=== PATIENT | female | born 1970 | race Caucasian/White ===

== ENCOUNTER 2017-04-23 14:52 | Emergency (ER) | payer MEDICARE, MEDICAID ==
[~2017-04-23] VITALS: Ht 167.6 cm; Wt 71.8 kg
[~2017-04-23 14:52] MED LIST: CYAN50002 SL; FLUT16SP NS; GABA-500 PO; KLO1T PO; LORA2TAB PO; Marijuana; ONDA4TAB12 PO; PANT40TA3 PO; PROM12.510 PO; RIZA10TA28 PO; TOPI50TA32 PO; TOPI50TA88 PO; VENL75TA3 PO
[2017-04-23 14:55] VITALS: BP 121/80; PULSE 88; RESP 20; O2SAT 99
--- NOTE | 2017-04-23 15:54 | ED.REPORT ---
HPI-General Illness Date of Service Apr 23, 2017 ED Provider: Damien Shah MD Pt is a 46 year old female with a history of anxiety, PTSD, bipolar disorder, and depression who presents to the ED complaining of worsening depression onset 2 months ago. She c/o associated anxiety. She denies chest pain, shortness of breath, homicidal ideations, and suicidal ideations. Pt reports that she wants to be seen at [facility] has been having trouble getting in. The pt does not currently take medication for her bipolar disorder because she does "not do well on them." Per pt, her depression is exacerbated by recent of her father. She has no other acute complaints at this time. Nursing Notes Stated Complaint: MENTAL HEALTH EVAL Chief Complaint: Psychiatric Complaint Nursing Notes Reviewed: Yes Allergies: Coded Allergies: acetaminophen (Verified Allergy, Unknown, 04/23/17) amitriptyline (Verified Allergy, Unknown, 04/23/17) hydrocodone (Verified Allergy, Unknown, 04/23/17) morphine (Verified Allergy, Unknown, 04/23/17) nortriptyline (Verified Allergy, Unknown, 04/23/17) oxycodone HCl (Verified Allergy, Unknown, 04/23/17) tramadol (Verified Allergy, Unknown, 04/23/17) trazodone (Verified Allergy, Unknown, 04/23/17) Scheduled Fluticasone Propionate (Fluticasone Propionate Nasal) 16 Gm [place].susp 2 SPRAY NS DAILY Gabapentin (Gabapentin) 100 Mg Capsule 100 MG PO TID Pantoprazole DR (Pantoprazole DR) 40 Mg Tablet.dr 40 MG PO DAILY Topiramate (Topiramate) 50 Mg Tablet 50 MG PO HS Topiramate (Topamax) 50 Mg Tablet 50 MG PO AM Venlafaxine (Venlafaxine) 75 Mg Tablet 75 MG PO BID Scheduled PRN Clonazepam (Clonazepam) 1 Mg Tablet 1 MG PO BID PRN PRN For Anxiety Lorazepam (Lorazepam) 2 Mg Tablet 2 MG PO TID PRN PRN For Anxiety Ondansetron ODT (Ondansetron ODT) 4 Mg Tab.rapdis 4-8 MG PO Q8 PRN PRN For Nausea Promethazine (Promethazine) 12.5 Mg Tablet 12.5 MG PO TID PRN PRN For Nausea Miscellaneous Medications ([Marijuana]) Cyanocobalamin (Vitamin B-12) (Vitamin B-12) 5,000 Mcg Tab.subl 5,000 MCG SL Rizatriptan ODT (Rizatriptan) 10 Mg Tab.rapdis 10 MG PO may repeat at 2 hr intervals General Time Seen by MD: 15:52 Chief Complaint Other (Depression) Hx Obtained From: Patient Arrived By: Walk-in Sudden in Onset?: No Onset Occurred: More than a week ago... (2 months) Symptom Duration: Duration unknown Severity: Current: No pain currently Severity: Maximum: No pain Recent Healthcare: No recent doctor visit, No recent hospitalization Similar Sx Previous: Yes Past Medical History Past Medical History Irritable Bowel Syndrome/chronic abdominal pain Chronic back pain, prior back injury, with questionable sciatica, patient states is disabled Migraines Per pt: Fibromyalgia, "scar on the brain," Celiacs disease Biopolar disorder Depression Anxiety Past Surgical History abd exploratory surgery w/tubal ligation Status post negative EGD and colonoscopy April 2014 Reports: Hysterectomy, Tonsillectomy Smoking History Current Every Day Smoker Social History Alcohol Use: Denies alcohol use Drug Use: THC Ambulatory Status Independent Review of Systems Full Review of Systems Respiratory: Denies: Shortness of breath Cardiovascular: Denies: Chest pain Psychiatric: Reports: Anxiety, Depression, Denies: Homicidal ideation, Suicidal ideation Complete sys rev & neg: except as marked. Physical Exam Nursing note and vitals reviewed. Constitutional: Well-developed, well-nourished. Not diaphoretic. Head: Normocephalic and atraumatic. Mouth/Throat: Oropharynx is clear and moist. No oropharyngeal exudate. Eyes: EOM are normal. Pupils are equal, round, and reactive to light. Neck: Supple, no tracheal deviation. Cardiovascular: Normal rate, regular rhythm. Equal and intact distal pulses throughout. Pulmonary/Chest: Effort normal and breath sounds normal. No respiratory distress. Abdominal: Soft. No distension. There is no tenderness, rebound, or guarding. Bowel sounds present. Musculoskeletal: Range of motion grossly intact, moving all extremities. No edema or tenderness appreciated. Neurological: AOx3. Grossly nonfocal exam. Strength and sensation intact and equal to bilateral upper and lower extremities. Skin: Warm and dry, no rashes or pallor appreciated. Psychiatric: Appears anxious but denies homicidal ideations or suicidal ideations. Vital Signs Vital Signs Date Time Temp Pulse Resp B/P Pulse Ox O2 Delivery O2 Flow Rate FiO2 04/23/17 14:55 36.7 88 20 121/80 99 Room Air Initial VS: Reviewed Re-Eval/Medical Decision Med Decision/Clinical Course In summary, 46-year-old female presenting to the ED for evaluation of worsening depression over the past several months. She has no acute, new symptoms today, however has been having difficulty getting in to the clinic that she would like to be seen at. Vital signs grossly within normal limits. She denies any homicidal or suicidal ideations, nor new somatic complaints. Denies recent alcohol or drug ingestion and does not appear to be intoxicated. Social work consulted to assist in obtaining outpatient resources; appreciate recommendations and assistance. Given the chronic nature of her problems and no new symptoms today, no homicidal or suicidal ideations, no new somatic complaints, reasonable to discharge home with follow-up tomorrow. This was arranged as per below. Patient agreeable to the plan as stated, no further questions. Source of Hx: Old records Time of Eval: 17:25 Re-Evaluation/Progress Note: Pt rechecked. Informed pt of plan for discharge. Pt understands and agrees with plan for discharge. F/U instructions and RTER warnings given. All questions addressed. Counseled Regarding: Diagnosis, Need for follow-up, When/why to return to ED Discharge & Departure Primary Impression: Depression Depression Type: unspecified Qualified Code: F32.9 - Major depressive disorder, single episode, unspecified Additional Impression: Anxiety Disposition: Home Discharge Condition All VS Reviewed: Yes Condition: Stable Patient Instructions: Anxiety (ED), Depression (ED) Additional Instructions: Follow up with [facility] this week, as discussed. [facility] will call you tomorrow at 10am to help arrange for an appointment. Return to the Emergency Department for chest pain, shortness of breath, thoughts of hurting yourself or others, or any other symptoms of concern to you. Referrals: Shorty Odonnell MD (PCP) Scribe Attestation Portions of this note were transcribed by Ella Awad and Paulina Echevarria. I, Dr. Shah personally performed the history, physical exam and medical decision- making; I reviewed and confirmed the accuracy of the information in the transcribed note. Signed by: Bee Orozco, 04/23/17 copies to: Shorty Odonnell MD, William B MD Apr 23, 2017 15:54 Ella Awad Apr 23, 2017 16:39 Paulina Antoine Apr 23, 2017 17:04
[2017-04-23] MEDS ORDERED: AMOX-366 PO (17:52)
== END 2017-04-23 18:09 | disposition home or self-care (01) ==
LOC: SED 14:52
DX: F32.9 Major depressive disorder, single episode, unspecified (principal); F41.9 Anxiety disorder, unspecified; F43.10 Post-traumatic stress disorder, unspecified; F17.200 Nicotine dependence, unspecified, uncomplicated; Z88.6 Allergy status to analgesic agent; Z88.8 Allergy status to other drugs, medicaments and biological substances; Z88.5 Allergy status to narcotic agent